=== PATIENT | male | born 1970 | race Two or more races ===

== ENCOUNTER 2025-08-22 15:41 | Emergency (ER) | payer MEDICAID, SELFPAY ==
[2025-08-22 15:55] VITALS: BP 179/97; PULSE 61; RESP 16; TEMP 37.1; O2SAT 99; BMI 25.7
--- NOTE | 2025-08-22 16:09 | PD.EDMEDCL ---
ED Medical Clearance RME/HPI General Chief complaint: Medical Clearance Stated complaint: [facility] CLEARANCE Time Seen by Provider: 08/22/25 16:09 Arrival date/time: 08/22/25 15:41 RME / HPI RME / HPI Narrative: See [facility] for Dr. Gillette's HPI documentation. Related Information Home Medications ?Medication ?Instructions ?Recorded ?Confirmed albuterol sulfate 90 mcg/actuation 2 puff inhalation PRN PRN WHEEZING 12/26/15 aerosol inhaler (Ventolin HFA) ##18 calcium carbonate (Tums) 300 mg PO BID #0 tabs 02/18/16 Allergies Allergy/AdvReac Type Severity Reaction Status Date / Time NKA* Allergy Uncoded 05/17/18 11:58 Review of Systems Review of Systems Systems Reviewed: All systems reviewed, normal except as documented Past Medical History Social History SMOKING STATUS: Never smoker ED Exam Narrative Physical exam: See [facility] for Dr. Gillette's physical exam documentation. Course Quality Measures none Orders Category Date Time Status EKG (ED ONLY) *Do not use* NOW Care 08/22/25 16:10 Completed EKG (ED Only) Stat Exams 08/22/25 16:10 Draft XR chest 1V portable Stat Exams 08/22/25 16:10 Completed cloNIDine HCL [Catapres] Med 08/22/25 16:10 Discontinued 0.2 mg PO X1 ONE Vital Signs Vital signs: Vital Signs Temperature 98.7 F 08/22/25 15:55 Pulse Rate 61 08/22/25 15:55 Respiratory Rate 16 08/22/25 15:55 Blood Pressure 179/97 H 08/22/25 15:55 Pulse Oximetry (%) 99 08/22/25 15:55 Oxygen Delivery Method Room Air 08/22/25 15:55 Pulse ox is 99% on room air which is adequate. Medical Clearance [facility] Narrative [facility] Narrative:: This section includes all my notes and documentations, including HPI, PE, and ED course. Ari Gillette MD HPI: 55-year-old male here for nursing home clearance. His multiple concerns they are included hemoptysis and cancer. But he rescinds the concerns. Wants to be medically cleared without any diagnostic tests. ROS: All negative except as documented in HPI. Physical Exam: General: Alert and oriented. Eyes: Conjunctivae and lids clear. ENT: No nasal congestion. Neck: Supple. Lungs: No respiratory distress. Skin: Warm and dry. Neuro: Alert and oriented X 3. I reviewed all diagnostic test results: My interpretation of the EKG is: My interpretation of the EKG is: Sinus rhythm (56 bpm) with nonspecific ST-T changes. My interpretation of the chest x-ray is: NAD At this point, diagnoses include: Hypertension Treatment here included: Oral Clonidine 0.2 mg Significant improvement Recommended more outpatient care. Based on my best medical judgment, made decision to medically clear the patient and no further evaluation or treatment indicated at this time. Patient understands and agrees to the discharge instructions customized and printed, see below. Discharge Instructions from Dr. Gillette printed for you: 1. You are medically cleared for nursing home after lowering your BP. 2. When you are released from nursing home, see a private doctor for recheck and further care of all your concerns. Ask for help with good management of your BP to prevent future heart attacks and strokes. 3. Seek immediate medical care with any concerns. You can ask for medical attention anytime. Ari Gillette MD Patient data External records reviewed:: [facility] previous records Clinical information provided by:: patient and law enforcement Social determinants that could affect healthcare access:: none Patient has the following chronic illnesses:: none reported How is presenting disease/condition affected by chronic disease/condition?: no chronic disease Evaluation data The following diagnostics were reviewed and interpreted by me:: EKG tracing(s) (My interpretation of the EKG is: Sinus rhythm (56 bpm) with nonspecific ST-T changes. Ari Gillette MD) Lab and/or radiology exams considered but not ordered:: None Interpretation Summary: My interpretation of the EKG is: My interpretation of the EKG is: Sinus rhythm (56 bpm) with nonspecific ST-T changes. Ari Gillette MD My interpretation of the chest x-ray is: NAD Medications / Prescriptions Medications or Prescriptions considered but not ordered:: None Medication administrations:: Medication Administration History Discontinued Medications Clonidine (Clonidine Hcl 0.1 Mg Tablet) 0.2 mg PO X1 ONE Stop: 08/22/25 16:11 Last Admin: 08/22/25 16:49 Dose: 0.2 mg Documented By: LIZA Oral Clonidine 0.2 mg Consultations Consultation(s) initiated? (list below): No Diagnosis Medical Clearance Differential Diagnosis: other (Hypertension, hypertensive urgency, hypertensive emergency ) Most likely diagnosis given after review of the tests above:: Hypertension Admission Indicated Admission indicated?: not indicated Explain why admission is indicated or not indicated:: With significant improvement and no condition needing emergent intervention, there was no indication for admission. Admission Request Was there a request for admission?: No Disposition Plan Disposition Plan: Discharge Discharge Attestation Discharge Attestation: The patient and all family members were given an opportunity to ask questions and understood the discharge instructions. Discharge instructions specifically effects, indications for sooner follow up or return to the emergency department, and the expected course of current diagnosis. Patient condition: Stable Discharge Plan Plan Patient Disposition: HOME (Self Care) Prescriptions/Referrals Prescriptions/Med Rec: No Action albuterol sulfate [Ventolin HFA] 200 PUFF/INH HFA aerosol inhaler 2 puff Inhalation PRN PRN (Reason: WHEEZING) Qty: 18 calcium carbonate [Tums] 300 MG tablet,chewable 300 mg PO BID Qty: 0 Problem List Clinical Impression: Hypertension Patient/Caregiver Discharge Instructions Discharge Activity: activity as tolerated Education Materials: ED Hypertension, Established Additional Instructions: Discharge Instructions from Dr. Gillette printed for you: 1. You are medically cleared for nursing home after lowering your BP. 2. When you are released from nursing home, see a private doctor for recheck and further care of all your concerns. Ask for help with good management of your BP to prevent future heart attacks and strokes. 3. Seek immediate medical care with any concerns. You can ask for medical attention anytime. Print Language: Kittitian Stand Alone Forms: [employer] Award Info., Patient Portal Info Letter
--- NOTE | 2025-08-22 16:10 | EKG_ITS ---
[facility] Test Date: 2025-08-22 Pat Name: MICHI RIOS Department: Room: - Gender: Male [employer]: : [id number] Requested By: Ari Sutton Order Number: [id number] Reading MD: Ari Sutton Measurements Intervals [place] Rate: 56 P: 6 MI: 121 QRS: 47 QRSD: 101 T: 60 QT: 421 QTc: 407 Interpretive Statements SINUS BRADYCARDIA POSSIBLE RIGHT VENTRICULAR CONDUCTION DELAY [RSR (QR) IN V1/V2] No previous ECG available for comparison /[id number].pdf
--- NOTE | 2025-08-22 16:10 | XR_ITS ---
EXAMINATION: AP chest single view TECHNIQUE: AP portable upright chest single view Date and time: August 22, 2025, 1618 hours INDICATIONS: Shortness of breath today FINDINGS: Normal heart size BB density over the right mid chest No pneumonia or pulmonary edema Mild osteopenia IMPRESSION: No pneumonia or pulmonary edema
[2025-08-22 16:49] VITALS: BP 163/95; PULSE 67
[2025-08-22 17:53] VITALS: BP 165/95; PULSE 71
== END 2025-08-22 17:57 | disposition home or self-care (01) ==
LOC: SERX 18:21
PROVIDERS: Emergency Provider Emergency Medicine
DX: I10 Essential (primary) hypertension (principal)
CPT/HCPCS: 71045; 93005; 99283; A9270